=== PATIENT | female | born 1975 | race Two or more races ===

== ENCOUNTER 2023-07-23 11:24 | Emergency (ER) | payer MEDICAID, OTHER ==
[~2023-07-23] VITALS: Ht 170.2 cm; Wt 60.3 kg
[2023-07-23 14:52] VITALS: BP 118/83; PULSE 68; RESP 18; O2SAT 96
== END 2023-07-23 14:54 | disposition home or self-care (01) ==
LOC: ER 11:24
DX: N64.4 Mastodynia (principal); F17.210 Nicotine dependence, cigarettes, uncomplicated; Z98.82 Breast implant status